=== PATIENT | male | born 1990 | race Caucasian/White ===

== ENCOUNTER 2017-08-20 22:29 | Emergency (ER) | payer BC ==
[~2017-08-20] VITALS: Ht 180.3 cm; Wt 74.8 kg
--- NOTE | 2017-08-20 23:01 | NUR ---
Patient discharged to home in stable conditon. Written and verbal after care instructions given. Patient verbalizes understanding of instructions.
== END 2017-08-20 23:01 | disposition home or self-care (01) ==
LOC: ER 22:33
DX: S09.92XA Unspecified injury of nose, initial encounter (principal); W51.XXXA Accidental striking against or bumped into by another person, initial encounter; Y92.89 Other specified places as the place of occurrence of the external cause; Y93.89 Activity, other specified; Y99.8 Other external cause status
CPT/HCPCS: 99281; A4663

== ENCOUNTER 2017-10-08 12:55 | Emergency (ER) | payer BC ==
[~2017-10-08] VITALS: Ht 180.3 cm; Wt 74.8 kg
--- NOTE | 2017-10-08 13:22 | NUR ---
PATIENT WAS MSE BY DR LUCERO IN ROOM 02B.
[2017-10-08] MEDS ORDERED: IBUPROFEN 800 MG TABLET PO ONE (14:15)
[2017-10-08 14:54] VITALS: BP 118/55
== END 2017-10-08 14:30 | disposition home or self-care (01) ==
LOC: ER 12:55
DX: M84.375A Stress fracture, left foot, initial encounter for fracture (principal)
CPT/HCPCS: 73620; A4663